=== PATIENT | male | born 1970 | race Caucasian/White ===

== ENCOUNTER 2020-11-13 16:01 | Emergency (ER) | payer OTHER ==
[~2020-11-13] VITALS: Ht 175.2 cm; Wt 102.1 kg
== END 2020-11-13 19:04 | disposition home or self-care (01) ==
LOC: ED 16:01
DX: U07.1 COVID-19 (principal); J12.82 Pneumonia due to coronavirus disease 2019

== ENCOUNTER → 2020-12-02 | Outpatient (CLI) | payer OTHER | END | disposition home or self-care (01) | LOC: RAD 13:34 | PROVIDERS: ATTEND Nurse Practitioner Family | DX: U07.1 COVID-19 (principal); R09.02 Hypoxemia; Z99.81 Dependence on supplemental oxygen ==

== ENCOUNTER → 2021-05-13 | Outpatient (CLI) | payer OTHER | END | disposition home or self-care (01) | LOC: RAD 16:31 | PROVIDERS: ATTEND Nurse Practitioner Family | DX: R09.81 Nasal congestion (principal); Z20.828 Contact with and (suspected) exposure to other viral communicable diseases; Z86.16 Personal history of COVID-19; R53.83 Other fatigue; R06.02 Shortness of breath ==

== ENCOUNTER → 2021-06-10 | Outpatient (CLI) | payer BC | END | disposition home or self-care (01) | LOC: CT 05-27 09:00 | PROVIDERS: ATTEND Nurse Practitioner Family | DX: N20.0 Calculus of kidney (principal); R53.83 Other fatigue; R93.89 Abnormal findings on diagnostic imaging of other specified body structures ==